=== PATIENT | female | born 1960 | race Hispanic/Latino ===

== ENCOUNTER → 2018-08-01 | Outpatient (CLI) | payer OTHER ==
[~2018-08-01] MED LIST: AMLO5TAB7 PO; LISI40TA4 PO
== END | disposition home or self-care (01) ==
LOC: RAH 13:25
PROVIDERS: ATTEND Internal Medicine
DX: Z12.31 Encounter for screening mammogram for malignant neoplasm of breast (principal)
CPT/HCPCS: 77067

== ENCOUNTER 2018-08-02 18:46 | Emergency (ER) | payer OTHER ==
[2018-08-02 19:28] LABS: APPEARANCE,URINE Cloudy (CLEAR); BILIRUBIN,URINE Negative (NEGATIVE); COLOR,URINE Dark Yellow (YELLOW); GLUCOSE, URINE (UA) Negative (NEGATIVE); KETONES,URINE 15 mg/dL (NEGATIVE); LEUKOCYTE ESTERASE ,URINE Moderate (NEGATIVE); NITRATE,URINE Negative (NEGATIVE); OCCULT BLOOD,URINE Moderate (NEGATIVE); PH,URINE 6.5 (5.0-8.0); PROTEIN,URINE Negative (NEGATIVE)
[2018-08-02 19:50] LABS: EOSINOPHILS % (AUTO) 6.5 % (0.0-8.0); HEMATOCRIT 40.5 % (36-48); LYMPHOCYTES % (AUTO) 24.8 % (21.0-51.0); MEAN CORPUSCULAR HEMOGLOBIN 31.4 pg (27.0-33.0); MEAN CORPUSCULAR HGB CONC 33.4 g/dL (32.0-36.0); MEAN CORPUSCULAR VOLUME 94.2 fL (79-99); MONOCYTES % (AUTO) 7.6 % (3.0-13.0); NEUTROPHILS % (AUTO) 60.1 % (40.0-77.0); PLATELET COUNT (AUTO) 221 K/uL (130-400); RED CELL DISTRIBUTION WIDTH 14.2 % (11.0-15.5); WHITE BLOOD COUNT (AUTO) 5.5 K/uL (4.8-10.8)
[2018-08-02 19:51] LABS: BACTERIA,URINE Few /HPF (None Seen); MUCUS,URINE Many LPF (None Seen)
[2018-08-02] MEDS ORDERED: ONDANSETRON HCL 4 MG/2 ML VIAL ONE (19:51)
[2018-08-02] MEDS ORDERED: HYOSCYAMINE SULFATE 0.125 MG TAB.SUBL SL ONE (19:52)
[2018-08-02 20:03] LABS: CREATININE 0.7 mg/dL (0.5-1.5); POTASSIUM 3.3 mmol/L (3.5-5.1)
[2018-08-02 20:07] LABS: ALBUMIN 3.9 g/dL (3.5-5.0); BILIRUBIN,TOTAL 0.4 mg/dL (0.2-1.0); TOTAL PROTEIN, SERUM 7.6 g/dL (6.0-8.3)
[2018-08-02 20:12] LABS: CREATINE KINASE, TOTAL 98 U/L (21-232); MYOGLOBIN 26 ng/mL (10-92); TROPONIN I < 0.04 ng/mL (0.00-0.06)
[2018-08-02] MEDS ORDERED: POTASSIUM BICARB/CIT AC 25 MEQ TABLET.EFF ONE (20:32)
[2018-08-02] MEDS ORDERED: LEVOFLOXACIN 500 MG TABLET ONE (20:32)
[2018-08-02] MEDS ORDERED: KETOROLAC TROMETHAMINE 30MG/ML ONE (20:42)
== END 2018-08-02 21:35 | disposition home or self-care (01) ==
LOC: EDH 18:46
DX: K80.20 Calculus of gallbladder without cholecystitis without obstruction (principal); N39.0 Urinary tract infection, site not specified; I10 Essential (primary) hypertension; Z88.1 Allergy status to other antibiotic agents
CPT/HCPCS: 36415; 76705; 80053; 81001; 82150; 82550; 83690; 83874; 84484; 85025; 87088; 93005; 96374; 96375; 99285; J1885; J2405

== ENCOUNTER 2018-08-05 12:55 | Inpatient (IN) | payer OTHER ==
[~2018-08-05] VITALS: Ht 162.6 cm; Wt 70.8 kg
[2018-08-05] MEDS ORDERED: CLONIDINE HCL 0.1 MG TABLET PO PRN (14:00)
[2018-08-05] MEDS ORDERED: ACETAMINOPHEN EXTRA STRENGTH 500 MG TABLET PO PRN (14:00)
[2018-08-05] MEDS ORDERED: ONDANSETRON HCL MDV 20ML 2 MG/ML VIAL IVP PRN (14:00)
[2018-08-05] MEDS ORDERED: HYDROMORPHONE HCL 0.5 MG/0.5 ML ML IVP PRN (14:00)
[2018-08-05] MEDS ORDERED: LACTULOSE 20 GM/30 ML UDCUP PO PRN (14:00)
[2018-08-05] MEDS ORDERED: DIPHENHYDRAMINE HCL 25 MG CAPSULE PO PRN (14:00)
[2018-08-05] MEDS ORDERED: ZOLPIDEM TARTRATE 5 MG TAB PO PRN (14:00)
[2018-08-05 14:01] VITALS: BP 115/75
[2018-08-05 15:13] LABS: EOSINOPHILS % (AUTO) 4.4 % (0.0-8.0); HEMATOCRIT 43.5 % (36-48); LYMPHOCYTES % (AUTO) 26.3 % (21.0-51.0); MEAN CORPUSCULAR HEMOGLOBIN 32.2 pg (27.0-33.0); MEAN CORPUSCULAR HGB CONC 33.9 g/dL (32.0-36.0); MEAN CORPUSCULAR VOLUME 94.8 fL (79-99); MONOCYTES % (AUTO) 8.2 % (3.0-13.0); NEUTROPHILS % (AUTO) 60.1 % (40.0-77.0); PLATELET COUNT (AUTO) 241 K/uL (130-400); RED BLOOD CELL COUNT(AUTO) 4.59 MIL/uL (4.00-5.50); WHITE BLOOD COUNT (AUTO) 5.4 K/uL (4.8-10.8)
[2018-08-05 15:27] LABS: BILIRUBIN,TOTAL 0.5 mg/dL (0.2-1.0); CREATININE 0.8 mg/dL (0.5-1.5); POTASSIUM 3.5 mmol/L (3.5-5.1)
[2018-08-05 15:42] VITALS: BP 136/74
[2018-08-05] MEDS ORDERED: LISI40TA4 PO (16:24)
[2018-08-05] MEDS ORDERED: AMLO5TAB7 PO (16:24)
[2018-08-05] MEDS: ZOSYN 3.375GM+NS 50ML 50 ML IV SCH (17:43)
[2018-08-05 19:35] VITALS: BP 133/72
[2018-08-05] MEDS: DEXTROSE 5 %-0.45 % NACL 1,000 ML IV SCH (23:00)
[2018-08-06] VITALS (28 sets, daily range): BP systolic 121–158; BP diastolic 59–96
[2018-08-06] MEDS: ZOSYN 3.375GM+NS 50ML 50 ML IV SCH ×4 (03:44→17:51)
[2018-08-06 04:31] LABS: EOSINOPHILS % (AUTO) 9.3 % (0.0-8.0); HEMATOCRIT 40.8 % (36-48); LYMPHOCYTES % (AUTO) 39.2 % (21.0-51.0); MEAN CORPUSCULAR HEMOGLOBIN 31.4 pg (27.0-33.0); MEAN CORPUSCULAR HGB CONC 33.6 g/dL (32.0-36.0); MEAN CORPUSCULAR VOLUME 93.5 fL (79-99); MONOCYTES % (AUTO) 11.2 % (3.0-13.0); NEUTROPHILS % (AUTO) 39.3 % (40.0-77.0); NUCLEATED RED BLOOD CELLS 0.1 % (0.0-0.19); PLATELET COUNT (AUTO) 203 K/uL (130-400); RED BLOOD CELL COUNT(AUTO) 4.36 MIL/uL (4.00-5.50); RED CELL DISTRIBUTION WIDTH 13.7 % (11.0-15.5); WHITE BLOOD COUNT (AUTO) 4.6 K/uL (4.8-10.8)
[2018-08-06 05:12] LABS: ALBUMIN 3.3 g/dL (3.5-5.0); BILIRUBIN,TOTAL 0.5 mg/dL (0.2-1.0); CREATININE 0.7 mg/dL (0.5-1.5); POTASSIUM 3.6 mmol/L (3.5-5.1); TOTAL PROTEIN, SERUM 6.8 g/dL (6.0-8.3)
[2018-08-06] MEDS ORDERED: BUPIVACAINE/EPI/PF 0.5% 30ML VIAL IJ ONE (05:52)
[2018-08-06] MEDS: DEXTROSE 5 %-0.45 % NACL 1,000 ML IV SCH ×3 (06:00→22:00)
[2018-08-06] MEDS ORDERED: LACTATED RINGERS 1000ML 1,000 ML IV ONE (06:05)
[2018-08-06] MEDS ORDERED: ROCURONIUM 10MG/1ML SYR 10 MG/ML ML ONE (06:14)
[2018-08-06] MEDS ORDERED: ONDANSETRON HCL 4 MG/2 ML VIAL ONE ×2 (06:14→12:37)
[2018-08-06] MEDS ORDERED: LIDOCAINE PF 2% 5ML ABBOJECT ONE (06:14)
[2018-08-06] MEDS ORDERED: PROPOFOL 10 MG/ML 20ML VIAL IV ONE (06:14)
[2018-08-06] MEDS ORDERED: MIDAZOLAM HCL 1 MG/ML 2ML VIAL ONE (06:14)
[2018-08-06] MEDS ORDERED: FENTANYL CITRATE PF 50 MCG/1 ML 2ML VIAL ONE (06:15)
[2018-08-06] MEDS ORDERED: IOHEXOL-350 50ML VIAL IV ONE (06:16)
[2018-08-06] MEDS ORDERED: EPHEDRINE SULFATE 50 MG/ML AMPULE ONE (06:34)
[2018-08-06] MEDS ORDERED: GLYCOPYRROLATE 1 MG/5 ML SYRINGE ONE (07:08)
[2018-08-06] MEDS ORDERED: NEOSTIGMINE 5MG/5ML SYR IV ONE (07:08)
[2018-08-06] MEDS ORDERED: CALDOLOR 800MG+NS 250ML 250 ML IV ONE (07:14)
[2018-08-06] MEDS ORDERED: MEPERIDINE-PF 25 MG/ML SYG ONE (08:04)
[2018-08-06] MEDS ORDERED: TRAMADOL HCL 50 MG TABLET PO PRN ×2 (10:30)
[2018-08-06] MEDS ORDERED: HYDROMORPHONE 1 MG/1 ML AMP ONE (10:32)
[2018-08-06] MEDS ORDERED: CALCIUM CARBONATE 500 MG/5 ML ML PO PRN (10:45)
[2018-08-06] MEDS ORDERED: LACTULOSE 20 GM/30 ML UDCUP PO PRN (10:49)
[2018-08-06] MEDS: HYDROMORPHONE 1 MG/1 ML AMP ONE ×2 (14:20→14:59)
[2018-08-06] MEDS ORDERED: PROMETHAZINE HCL 25 MG/ML 1ML AMPULE IM PRN (15:15)
[2018-08-06] MEDS ORDERED: ONDANSETRON HCL MDV 20ML 2 MG/ML VIAL IVP PRN (15:15)
[2018-08-06] MEDS: MAG HYDROX/AL HYDROX/SIMETH ES 30 ML SUSP UDCUP PO PRN (20:58)
[2018-08-07] MEDS: ZOSYN 3.375GM+NS 50ML 50 ML IV SCH (02:53)
[2018-08-07] MEDS: DEXTROSE 5 %-0.45 % NACL 1,000 ML IV SCH (02:55)
[2018-08-07 03:40] VITALS: BP 126/55
[2018-08-07 07:00] VITALS: BP 148/76
[2018-08-07] MEDS: MAG HYDROX/AL HYDROX/SIMETH ES 30 ML SUSP UDCUP PO PRN (10:06)
== END 2018-08-07 10:15 | disposition home or self-care (01) | DRG 263 ==
LOC: EDH 12:55 → EDHIP 13:19 → WSH 13:40 → 3CH 08-06 05:30
PROVIDERS: ADMIT Internal Medicine; ATTEND Internal Medicine
PROC: 0FT44ZZ Resection of Gallbladder, Percutaneous Endoscopic Approach (ICD-10-PCS; principal; 2018-08-06 06:19)
DX: K80.00 Calculus of gallbladder with acute cholecystitis without obstruction (principal); E03.9 Hypothyroidism, unspecified; I10 Essential (primary) hypertension; Z88.1 Allergy status to other antibiotic agents; Z79.899 Other long term (current) drug therapy
CPT/HCPCS: 36415; 76705; 80053; 81001; 82150; 82550; 83690; 83874; 84484; 85025; 87088; 88304; 93005; 96374; 96375; C1758; J1170; J1741; J1885; J2001; J2175; J2250; J2405; J2543; J2704; J2710; J3010; J3490; J7030; J7042; J7120; Q9967

== ENCOUNTER → 2018-12-19 | Outpatient (CLI) | payer OTHER ==
[~2018-12-19] MED LIST changes: -AMLO5TAB7 PO; +AMLO5TAB9 PO
== END | disposition home or self-care (01) ==
LOC: RAH 13:35
PROVIDERS: ATTEND Internal Medicine
DX: R31.29 Other microscopic hematuria (principal); Z90.49 Acquired absence of other specified parts of digestive tract
CPT/HCPCS: 74176

== ENCOUNTER → 2019-08-05 | Outpatient (CLI) | payer OTHER | END | disposition home or self-care (01) | LOC: RAH 14:51 | PROVIDERS: ATTEND Internal Medicine | DX: Z12.31 Encounter for screening mammogram for malignant neoplasm of breast (principal) | CPT/HCPCS: 77067 ==

== ENCOUNTER → 2020-08-05 | Outpatient (CLI) | payer OTHER ==
[~2020-08-05] MED LIST changes: +AMLO-257 PO; -AMLO5TAB9 PO
== END | disposition home or self-care (01) ==
LOC: RAH 09:21
PROVIDERS: ATTEND Internal Medicine
DX: Z12.31 Encounter for screening mammogram for malignant neoplasm of breast (principal)
CPT/HCPCS: 77067

== ENCOUNTER → 2020-09-26 | Outpatient (CLI) | payer OTHER | END | disposition home or self-care (01) | LOC: SHCH 09:24 | PROVIDERS: ATTEND Internal Medicine Cardiovascular Disease | DX: I87.2 Venous insufficiency (chronic) (peripheral) (principal) | CPT/HCPCS: 93970 ==

== ENCOUNTER → 2021-05-08 | Outpatient (CLI) | payer OTHER ==
[~2021-05-08] MED LIST changes: -LISI40TA4 PO; +LISI40TA9 PO
== END | disposition home or self-care (01) ==
LOC: SHCH 07:58
PROVIDERS: ATTEND Internal Medicine Cardiovascular Disease
DX: Z09 Encounter for follow-up examination after completed treatment for conditions other than malignant neoplasm (principal); I87.2 Venous insufficiency (chronic) (peripheral)
CPT/HCPCS: 93971

== ENCOUNTER → 2021-05-15 | Outpatient (CLI) | payer OTHER | END | disposition home or self-care (01) | LOC: SHCH 07:35 | PROVIDERS: ATTEND Internal Medicine Cardiovascular Disease | DX: Z09 Encounter for follow-up examination after completed treatment for conditions other than malignant neoplasm (principal); I87.2 Venous insufficiency (chronic) (peripheral); I70.291 Other atherosclerosis of native arteries of extremities, right leg | CPT/HCPCS: 93971 ==

== ENCOUNTER → 2021-05-21 | Outpatient (CLI) | payer OTHER | END | disposition home or self-care (01) | LOC: SHCH 13:17 | PROVIDERS: ATTEND Internal Medicine Cardiovascular Disease | DX: I51.7 Cardiomegaly (principal); R55 Syncope and collapse; R06.09 Other forms of dyspnea | CPT/HCPCS: 93306; 93356 ==

== ENCOUNTER → 2021-05-22 | Outpatient (CLI) | payer OTHER | END | disposition home or self-care (01) | LOC: RAH 10:49 | PROVIDERS: ATTEND Internal Medicine | DX: E27.8 Other specified disorders of adrenal gland (principal) | CPT/HCPCS: 76770 ==

== ENCOUNTER → 2024-10-01 | Outpatient (CLI) | payer OTHER, MEDICARE ==
--- NOTE | 2024-10-01 16:25 | HMCIMG ---
US SOFT TISSUE NECK REASON: localized enlarged lymph nodes. COMPARISON: None TECHNIQUE: Soft tissue neck ultrasound study was performed. FINDINGS: Bilateral cervical lymph nodes are seen the largest on the right measuring 6 x 7 mm and largest on the left measuring 4 x 6 mm. IMPRESSION: Borderline size cervical lymph nodes bilaterally.
== END | disposition home or self-care (01) ==
LOC: RAH 15:23
PROVIDERS: ATTEND Internal Medicine
DX: R59.0 Localized enlarged lymph nodes (principal); M54.6 Pain in thoracic spine
CPT/HCPCS: 76536